=== PATIENT | female | born 1955 | race Hispanic/Latino ===

== ENCOUNTER 2020-10-09 07:36 | Day surgery (SDC) | payer MEDICARE ==
[~2020-10-09 07:36] MED LIST: ACETAMINOPHEN 500 MG TAB PO SCH; GABAPENTIN 300 MG CAP PO NR; LACTATED RINGERS 1,000 ML IV SCH; MIDAZOLAM 2 MG/2 ML INJ IV NR; SCOPOLAMINE TRANSDERMAL PATCH 72 HR TD NR; ceFAZolin/Water 2 GM/20 ML 2 GM/20 ML SYRINGE IV NR
--- NOTE | 2020-10-09 08:25 | Anesthesia Day of Surgery ---
Anesthesia Day of Surgery - Day of Surgery Patient Examined: Yes Patient H&P Reviewed: Yes Patient is NPO: Yes
--- NOTE | 2020-10-09 08:25 | Anesthesia Consultation ---
Anesthesia Consult and Med Hx Date of service: 10/09/20 - Airway Anesthetic Teeth Evaluation: Dentures (upper) ROM Head & Neck: Adequate Mental/Hyoid Distance: Adequate Mallampati Class: Class I Intubation Access Assessment: Good - Pulmonary Exam CTA: Yes - Cardiac Exam Cardiac Exam: RRR - Pre-Operative Health Status ASA Pre-Surgery Classification: ASA3 Proposed Anesthetic Plan: General - Pulmonary Hx Smoking: Yes COPD: Yes (used symbicort this morning) Home Oxygen Therapy: No Hx Sleep Apnea: Yes (no CPAP) - Cardiovascular System Hx Hypertension: Yes (occasional HTN but no rx) Hx Heart Attack/AMI: No Hx Percutaneous Transluminal Coronary Angioplasty (PTCA): No Hx Cardia Arrhythmia: No - Central Nervous System CVA: No Hx Back Pain: Yes (NECK-PINCHED NERVE) - Endocrine Hx Renal Disease: No Hx Liver Disease: No Hx Non-Insulin Dependent Diabetes: Yes Hx Thyroid Disease: No - Other Systems Hx Alcohol Use: Yes (OCC.) Hx Substance Use: No Hx Cancer: No - Additional Comments Anesthesia Medical History Comments: No hx anesthetic complications. Pulmonary eval on chart. Discussed risk of periop pulmonary complications including possible need for overnight observation and/or prlong intubation/ICU admission.
[2020-10-09] MEDS ORDERED: ROCURONIUM 50 MG/5 ML INJ IV ONE (09:45)
[2020-10-09] MEDS ORDERED: propofoL 200 MG/20 ML VIAL IV ONE (09:45)
[2020-10-09] MEDS ORDERED: KETAMINE/STERILE WATER 50 MG/ML SYRINGE ONE (09:45)
[2020-10-09] MEDS ORDERED: BUPIVACAINE/PF (0.25%) 2.5 MG/ML 30 ML VIAL INFILTRATI ONE (10:20)
[2020-10-09 10:21] LABS: Hematocrit 42.5 % (30.3-42.9); Hemoglobin 14.5 gm/dl (10.1-14.3); Mean Corpuscular HGB Conc 34 % (30-34); Mean Corpuscular Volume 95 fl (79-97); Platelet Count 232 K/mm3 (140-440); Red Cell Distribution Width 14.2 % (13.2-15.2)
[2020-10-09 10:25] LABS: Blood Urea Nitrogen 17 mg/dL (7-17); Calcium 9.3 mg/dL (8.4-10.2); Hemolysis Index 6
--- NOTE | 2020-10-09 10:32 | Short Stay Summary ---
Short Stay Documentation Date of service: 10/09/20 Narrative H&P: Patient is a 65-year-old female who presents with intermittent history of pelvic pain for the past 3 to 4 months. Patient had exam in the office which revealed a tender area in the right pelvic area. Ultrasound did not reveal any obvious findings however patient continued to have pain intermittently. Patient was advised that the only way to definitively see a very lesions were present was to perform a laparoscopy. Patient consented to laparoscopy. We will proceed with same. - History Principal diagnosis: Pelvic pain H&P: obtained from office Past Medical History: COPD, hypertension Past Surgical History: Other (tubal ligation) Social history: , smoking - Allergies and Medications Current Medications: Allergies [id number] Adverse Reaction (Severe, Uncoded 10/08/20 14:31) Shortness of Breath Home Medications Medication Instructions Recorded Confirmed Last Taken Type Atorvastatin 40 mg PO DAILY 10/08/20 10/08/20 10/08/20 History Gabapentin 300 mg PO DAILY 10/08/20 10/08/20 10/08/20 History Multi For Her Tablet 1 tab PO DAILY 10/08/20 10/08/20 10/08/20 History Naproxin 500 mg PO BID 10/08/20 10/08/20 History Pantoprazole 40 mg PO DAILY 10/08/20 10/08/20 10/08/20 History Prozac 40 mg PO DAILY 10/08/20 10/08/20 10/08/20 History Singulair 10 mg PO DAILY 10/08/20 10/08/20 10/08/20 History Sitagliptin Phosphate [Januvia] 50 mg PO DAILY 10/08/20 10/08/20 10/08/20 History Sucralfate [Carafate] 1 dose PO TID 10/08/20 10/08/20 10/08/20 History Symbicort 160-4.5 Mcg Inhaler 1 dose IH BID 10/08/20 10/09/20 10/09/20 06:30 History Active Medications Acetaminophen (Acetaminophen 500 Mg Tab) 1,000 mg PO PREOP RAD Stop: 10/09/20 20:00 Last Admin: 10/09/20 09:44 Dose: 1,000 mg Documented by: Gabapentin (Gabapentin 300 Mg Cap) 300 mg PO PREOP NR Stop: 10/09/20 23:59 Last Admin: 10/09/20 09:44 Dose: 300 mg Documented by: Lactated Ringer's (Lactated Ringers) 1,000 mls @ 100 mls/hr IV DIRECT RAD Stop: 10/09/20 23:59 Last Admin: 10/09/20 09:28 Dose: 100 mls/hr Documented by: Cefazolin Sodium (Ancef/Sterile Water 2 Gm/20 Ml) 2 gm in 20 mls @ 80 mls/hr IV PREOP NR; Protocol Stop: 10/09/20 23:59 Midazolam HCl (Midazolam 2 Mg/2 Ml Inj) 2 mg IV PREOP NR Stop: 10/09/20 23:59 Scopolamine (Scopolamine Transdermal Patch 72 Hr) 1 each TD PREOP NR Stop: 10/09/20 23:59 Last Admin: 10/09/20 09:43 Dose: 1 each Documented by: - Physical exam General appearance: no acute distress HEENT: Atraumatic Lungs: Clear to auscultation, Normal air movement Breasts: deferred Heart: Regular rate, Normal S1, Normal S2 Gastrointestinal: normal, normoactive bowel sounds Female Genitourinary: deferred Rectal Exam: deferred Extremities: No edema - Brief post op/procedure progress note Date of procedure: 10/09/20 Pre-op diagnosis: Pelvic and right lower quadrant pain Post-op diagnosis: same Procedure: *Diagnostic laparoscopy with lysis of adhesion and partial right salpingectomy Anesthesia: GETA Findings: Normal sized postmenopausal uterus and bilateral ovaries, adhesions of bowel to pelvic sidewall and right adnexa, otherwise normal anatomy Surgeon: GABRIELLA PAGAN Estimated blood loss: 50-100ml Pathology: list (portion of right fallopian tube) Specimen disposition: to lab Condition: stable - Hospital course Hospital course: unremarkable - Disposition Condition at discharge: Stable Disposition: [id number] TO HOME OR SELFCARE Short Stay Discharge Plan Activity: advance as tolerated Weight Bearing Status: Weight Bear as Tolerated Diet: regular Wound: open to air Additional Instructions: ACTIVITY: ADVANCE TOLERATED WEIGHT BEAR TOLERATED KEEP WOUNDS OPEN TO AIR (NO BANDAGES) YOU HAVE GLUE OVER YOUR INCISIONS, DO NOT SCRUB OR PEEL OFF, IT WILL FALL OFF NATURALLY MAY SHOWER (DO NOT TAKE A BATH FOR 2 WEEKS) DIET: REGULAR (NO GREASY OR SPICY TODAY) FOLLOW UP WITH DR. PAGAN IN 14 DAYS NO DRIVING, OPERATING MACHINERY, OR SIGNING LEGAL PAPERS TODAY. Follow up with: GABRIELLA PAGAN MD [Staff Physician] - 14 Days Forms: Outpatient Surgery DC Inst. Prescriptions: Ibuprofen [Motrin] 800 mg PO Q8HR PRN #40 tablet PRN Reason: Pain, Mild (1-3) HYDROcodone/APAP 5-325 [[place] 5/325] 1 each PO Q6HR PRN #20 tablet PRN Reason: Pain
[2020-10-09 10:43] LABS: BUN/Creatinine Ratio 43
[2020-10-09] MEDS ORDERED: MIDAZOLAM 2 MG/2 ML INJ ONE (10:51)
[2020-10-09] MEDS ORDERED: BUPIVACAINE/PF (0.5%) 5 MG/1 ML 30 ML VIAL INFILTRATI ONE (11:15)
[2020-10-09] MEDS ORDERED: SODIUM CHLORIDE 0.9% IRR 1,500 ML BOTTLE IR ONE (11:15)
[2020-10-09] MEDS ORDERED: ePHEDrine SULFATE 50 MG/1 ML INJ ONE (11:17)
[2020-10-09] MEDS ORDERED: ONDANSETRON 4 MG/2 ML INJ ONE (11:28)
[2020-10-09] MEDS ORDERED: NEOSTIGMINE 10MG/10 ML INJ MDV ONE (11:28)
[2020-10-09] MEDS ORDERED: GLYCOPYRROLATE 0.4 MG/2 ML INJ ONE (11:28)
[2020-10-09] MEDS ORDERED: SODIUM CHLORIDE 0.9% 1000 ML 1,000 ML ONE (11:40)
[2020-10-09] MEDS ORDERED: ALBUTEROL 2.5 MG/3 ML NEBU IH ONE (12:04)
[2020-10-09] MEDS ORDERED: ALBUTEROL 2.5 MG/3 ML NEBU IH SCH (12:30)
--- NOTE | 2020-10-09 13:18 | Operative Report ---
Operative Report Operative Report: Preoperative diagnosis: Pelvic pain Postoperative diagnosis: Same with pelvic adhesions Procedure: Diagnostic laparoscopy with lysis of adhesions and partial right salpingectomy Surgeon: Violet Mcfarlane Anesthesia: General EBL: Minimal IV fluids: 1000 mL Urine output: 150 mL Findings: Normal uterus tubes and ovaries Specimens: Portion of right fallopian tube Complications: None The patient was properly identified as herself. She was then taken to the OR with IV running and in place. She was given general anesthesia without difficulty. She was placed in a dorsal lithotomy position. She was then prepped and draped in normal sterile fashion. Attention was turned to the patient's vagina. Her bladder was drained of clear urine with a red rubber catheter. The speculum was then placed the patient's vagina. The cervix was visualized and grasped with tenaculum. The acorn cannula was then inserted. The surgeon's gloves were changed and attention turned to the patient's abdomen. A small incision was made in the patient's umbilicus incision a 5 mm trocar was placed. The laparoscope confirmed intra-abdominal placement. The abdomen was insufflated with CO2 gas to approximately 25 mmHg. A second incision was then placed in the left lower quadrant where a 5 mm trocar was placed. Within the pelvis there were several areas of adhesions of the bowel and omentum to the anterior abdominal wall. At this point a third trocar was placed in the right lower quadrant. Following this, the adhesions were taken down both on the left side and the right. In the process of removing the adhesions the right to begin to have some bleeding from the fimbriated end. The portion of the tube was then cauterized and transected. There was excellent hemostasis at the end of this portion of the procedure. The right tube was handed off for pathology. At this point the abdomen was deflated. All instruments were then removed from the abdomen. The incisions were then closed with 4-0 Monocryl. The incisions were also injected with quarter percent Marcaine. The patient tolerated the procedure well she was then awakened and taken recovery in stable condition. Sponge needle and instrument counts were correct 2.
[2020-10-09] MEDS ORDERED: ALBUMIN HUMAN 5% (25 GM/500 ML) INJ IV NR (13:30)
[2020-10-09] MEDS ORDERED: ePHEDrine SULFATE 50 MG/1 ML INJ IV ONE (14:30)
[2020-10-09 14:56] LABS: Hemoglobin 11.7 gm/dl (10.1-14.3); Mean Corpuscular HGB Conc 33 % (30-34); Mean Corpuscular Volume 95 fl (79-97); Platelet Count 197 K/mm3 (140-440); Red Blood Count 3.69 M/mm3 (3.65-5.03); Red Cell Distribution Width 14.2 % (13.2-15.2)
--- NOTE | 2020-10-09 16:43 | Post Anesthesia Evaluation ---
- Post Anesthesia Evaluation Patient Participated: Yes Airway Patent: Yes Stable Respiratory Function: Yes Nausea/Vomiting: No Temp > 96.8F: Yes Pain Manageable: Yes Adequeate Hydration: Yes Anesthesia Complications: No
[2020-10-09 21:06] VITALS: BP 130/74
== END 2020-10-09 16:45 | disposition home or self-care (01) ==
LOC: OR 07:36
PROVIDERS: ATTEND Obstetrics & Gynecology
DX: R10.2 Pelvic and perineal pain (principal); K66.0 Peritoneal adhesions (postprocedural) (postinfection); E78.00 Pure hypercholesterolemia, unspecified; I10 Essential (primary) hypertension; J44.9 Chronic obstructive pulmonary disease, unspecified; G47.30 Sleep apnea, unspecified; K21.9 Gastro-esophageal reflux disease without esophagitis; M19.90 Unspecified osteoarthritis, unspecified site; E11.9 Type 2 diabetes mellitus without complications; F32.9 Major depressive disorder, single episode, unspecified; Z72.89 Other problems related to lifestyle; Z88.8 Allergy status to other drugs, medicaments and biological substances; Z79.899 Other long term (current) drug therapy; Z98.41 Cataract extraction status, right eye; Z98.42 Cataract extraction status, left eye; Z87.440 Personal history of urinary (tract) infections; Z98.890 Other specified postprocedural states
CPT/HCPCS: 36415; 58670; 80048; 82962; 85027; 86850; 86900; 86901; 88302; C1765; J0690; J2250; J2405; J2704; J2710; J3490; J7030; J7120; P9045